=== PATIENT | female | born 1965 | race American Indian/Alaskan Native ===

== ENCOUNTER 2017-10-30 06:08 | Day surgery (SDC) | payer MEDICARE, OTHER ==
[2017-10-17 14:54] VITALS: BMI 44.9
[2017-10-30 07:16] VITALS: RESP 18
--- NOTE | 2017-10-30 07:24 | CP.SDSHP ---
Same Day Surgery H & P - History Proposed Procedure: Right knee arthroscopy, possible partial meniscectomy and microfracture Pre-Op Diagnosis: Right knee lateral meniscal tear, chondromalacia - Previous Medical/Surgical History Comments: ARETHA Previous Surgical History: left knee arthroscopy/ACL - Allergies Allergies: Allergies clopidogrel [From Plavix] Allergy (Verified 10/30/17 07:19) RASH - Current Medications Current Medications: patient on pain mgmt, last rx 10/28/17 for endocet #90, no additional narcotics rx provided - Physical Exam Vital Signs: Vital Signs 10/30/17 10/30/17 07:15 07:16 Temperature 98.1 F Pulse Rate 81 81 Respiratory 18 Rate Blood Pressure 100/60 Mental Status: Alert & Oriented x3 Heart: WNL Lungs: WNL GI: WNL - {Optional Preform as Required} Ortho: Other (+mcmurrays, +mild effusion, no erythema, calves soft NT neg homans +DP/PT pulses, +rom ankle/toes/knee) Other Pertinent Findings: medical clearance and imaging on chart, reviewed - Impression Impression: 52F with right knee meniscal tear for arthroscopy Pt. Evaluated Today:Candidate for Anesthesia & Procedure: Yes - Date & Time Date: 10/30/17 Time: 07:25 Short Stay Discharge - Short Stay Discharge Admitting Diagnosis/Reason for Visit: M25.461/ S83.511A/ M25.561 / M25.611 / Disposition: HOME/ ROUTINE Referrals: Mj Mendoza III, MD [Primary Care Provider] - Past Patient History - Past Medical History & Family History Past Medical History?: Yes - Past Social History Smoking Status: Former Smoker - CARDIAC Hx Cardiac Disorders: Yes Hx Hypertension: Yes Other/Comment: dvt--left leg/right lung - PULMONARY Hx Respiratory Disorders: No - NEUROLOGICAL Hx Neurological Disorder: No - HEENT Hx HEENT Problems: No - RENAL Hx Chronic Kidney Disease: No - ENDOCRINE/METABOLIC Hx Endocrine Disorders: Yes Hx Hypothyroidism: Yes - HEMATOLOGICAL/ONCOLOGICAL Hx Blood Disorders: No - INTEGUMENTARY Hx Dermatological Problems: No - MUSCULOSKELETAL/RHEUMATOLOGICAL Hx Musculoskeletal Disorders: Yes Hx Arthritis: Yes (knees,back,feet) - GASTROINTESTINAL Hx Gastrointestinal Disorders: Yes Hx Gastroesophageal Reflux: Yes - GENITOURINARY/GYNECOLOGICAL Hx Genitourinary Disorders: No - PSYCHIATRIC Hx Physical Abuse: No - SURGICAL HISTORY Hx Surgeries: Yes Hx Arthroscopy: Yes (left knee acl) Hx Breast Biopsy: Yes (breast rt nipple removed/numerous i/d) Hx Hysterectomy: Yes - ANESTHESIA Hx Anesthesia: Yes Hx Anesthesia Reactions: No Has any member of the family had a problem w/ anesthesia?: No
[2017-10-30] MEDS ORDERED: Lactated Ringer's 1,000 ML IV ONE ×2 (07:50→12:45)
[2017-10-30] MEDS ORDERED: EPINEPHrine 1 mg/ml (1:1000) Inj ONE ×3 (10:56→11:36)
[2017-10-30] MEDS ORDERED: ceFAZolin IV 1 gm in Dextrose 2 GM/100 ML BAG IVPB ONE (10:56)
[2017-10-30] MEDS ORDERED: methylPREDNISolone Depo 80 mg/ml Inj ONE (10:56)
[2017-10-30] MEDS ORDERED: Bupivacaine HCl 0.5% PF (30 ml) Inj ONE (10:56)
[2017-10-30] MEDS ORDERED: Bacitracin Ointment 30 GM TUBE ONE (10:57)
[2017-10-30] MEDS ORDERED: Propofol 10 mg/ml Inj (20 ML) ONE ×2 (11:02→11:44)
[2017-10-30] MEDS ORDERED: Succinylcholine 200 mg/10 ml Inj IV ONE (11:03)
[2017-10-30] MEDS ORDERED: Rocuronium 10 mg/ml (5 ml) ONE ×2 (11:03→12:55)
[2017-10-30] MEDS ORDERED: Lidocaine 4% (Laryng-O-Jet) Kit MM ONE (11:03)
[2017-10-30] MEDS ORDERED: Bupivacaine HCl 0.25% PF (30 ml) Inj ONE (11:35)
[2017-10-30] MEDS ORDERED: ePHEDrine 50 mg/ml Inj ONE (12:34)
[2017-10-30] MEDS ORDERED: EPINEPHrine 1 mg/ml (1:1000) Inj IV ONE (12:40)
[2017-10-30] MEDS ORDERED: Lidocaine 1% Inj (20ml) INFIL ONE (12:40)
[2017-10-30] MEDS ORDERED: methylPREDNISolone Depo 80 mg/ml Inj IM ONE ×2 (12:49→13:08)
[2017-10-30] MEDS ORDERED: Bupivacaine 0.5% Inj(30mL) IJ ONE ×2 (12:52→13:08)
[2017-10-30] MEDS ORDERED: Neostigmine 1:1000 (1 mg/ml) Inj ONE (13:01)
[2017-10-30] MEDS ORDERED: Bacitracin OINT 15GM TOP ONE (13:20)
[2017-10-30] MEDS ORDERED: Oxycodone/Acetaminophen 5/325 mg Tab PO PRN (13:31)
[2017-10-30] MEDS ORDERED: Lactated Ringer's 1,000 ML IV SCH ×2 (13:45)
--- NOTE | 2017-10-30 14:30 | PCM.ANESB3 ---
Femoral Nerve Block - Femoral Nerve Block Date of Procedure: 10/30/17 Anesthesiologist: Kandis Pre-Procedure Diagnosis: Internal derangement right knee Post-Procedure Diagnosis: Same Procedure Performed: Femoral Nerve Block Right - Procedure Femoral Nerve Block: The procedure was explained to the patient that it is for the post-operative pain management. Consent was obtained after a thorough discussion with the patient regarding the benefits and possible complications of local anesthetic block of the femoral nerve at the inguinal crease area. The patient was brought to the operating room and standard monitors were applied. Time-out was held with the circulating nurse to confirm the correct surgery and the appropriate block. Under general anesthesia, patient was placed in supine position with fully extended lower extremities and the ___right groin exposed. The femoral artery was then carefully palpated. The ultrasound transducer was then applied to this area in the transverse plane and the femoral nerve was visualized lateral to the femoral artery and underneath the fascia iliaca. After thorough identification, the inguinal crease area was prepped with Chloraprep. At this point, a #22 gauge Stimuplex 2-inch needle was inserted immediately lateral to the femoral artery pulse at the inguinal crease and advanced perpendicularly. The needle was inserted to the ultrasound transducer in-plane towards the femoral nerve in a [id number] direction. Needle advancement was performed carefully under direct ultrasound visualization. Nerve stimulator was used and twitch of the quadriceps muscle was obtained at current of ___0.4__ MA. After negative aspiration, _2____cc of _0.25____% ___bupivacaine with 1:200, 000 epinephrine was injected and this was followed with __38___ _ cc of ___0.25____ % ___bupivacaine with 1:200,000 epinephrine . Under ultrasound guidance the local anesthetics were observed spreading below fascia iliaca and around the femoral nerve. The needle was removed intact. The patient tolerated the femoral nerve block well with stable vital signs and was prepared for subsequent surgery.
[2017-10-30 17:13] VITALS: BP 112/67; PULSE 82; TEMP 97.6; O2SAT 96
--- NOTE | 2017-10-30 19:26 | PCM.SURG1 ---
Surgeon's Initial Post Op Note - Surgeon's Notes Surgeon: Kelly Certified Veterinary Technician: BOGDAN Gomez Type of Anesthesia: General Endo Anesthesia Administered By: Dr Badillo/Shaylee Pre-Operative Diagnosis: internal dernagement Right knee Operative Findings: as per post op dx Post-Operative Diagnosis: complex tear lateral meniscus/tear medial meniscus. tricompartmental synovitis. patellofemoral arthritis/chondral fx femoral trochlea. asymptomatic bipartite patella Operation Performed: arthroscopic partial tricompartmental synovectomy. arthroscopic p[artial medial/lateral meniscectomy. arthroscopic microfracture. intrarticular injection'. appl Genaro Huston dressing and knee immobilizer Specimen/Specimens Removed: cartilage/synovium/bone Estimated Blood Loss: EBL {In ML}: 10 Blood Products Given: N/A Drains Used: No Drains Post-Op Condition: Fair Date of Surgery/Procedure: 10/30/17 Time of Surgery/Procedure: 12:40 (time in room/anesthesia indcution time 11:45)
--- NOTE | 2017-10-31 12:15 | OP ---
Copied To: Mj Mendoza MD Attending MD: Mj Mendoza MD PROCEDURE DATE: 10/30/2017 PREOPERATIVE DIAGNOSIS: Internal derangement of the right knee. POSTOPERATIVE DIAGNOSES: 1. Complex tear of lateral meniscus. 2. Tear of medial meniscus. 3. Tricompartmental synovitis. 4. Patellofemoral arthritis, chondral fracture of the femoral trochlea. 5. Asymptomatic bipartite patella. OPERATIONS PERFORMED: 1. Arthroscopic partial tricompartmental synovectomy. 2. Arthroscopic partial, medial and lateral meniscectomy. 3. Arthroscopic microfracture. 4. Intra-articular injection. 5. Genaro Huston compression dressing and knee immobilizer. SURGEON: Mj Mendoza MD [employer] AND INSTALLER: Dora Dan, certified registered nursing registered medical assistant. ANESTHESIA: General endotracheal anesthesia. ANESTHESIA ADMINISTERED BY: Aurelio Badillo MD and Herman Marquis MD. SPECIMENS REMOVED: Cartilage, synovium and bone. BLOOD LOSS: 10 mL. BLOOD PRODUCTS: No blood products given. DRAINS: No drains. POSTOPERATIVE CONDITION: Stable. TIME OF SURGERY: 12:40. ANESTHESIA INDUCTION TIME: 11:45. OPERATIVE INDICATION: Love Hernandez is a 52-year-old morbidly obese female who presents with severe pain and deformity of the right knee, right lower extremity. Pros, cons, risks and benefits of surgical approach were discussed. The concept that this patient will require a total knee replacement arthroplasty in the future was discussed. The concept that the patient has a bipartite patella was discussed, in fact this was not a fracture. 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 Pros, cons, risks and benefits of surgical approach were discussed. The possibility of mechanical failure, infection, thromboembolic disease, secondary or tertiary surgery was discussed. OPERATIVE PROCEDURE: After having obtained informed consent in the above fashion, after having identified the side, site and procedure, a critical pause/time-out, after the satisfactory induction of the anesthetic, the patient identified as Love Hernandez, in the supine position with all bony prominences well padded. The right lower extremity was prepped, free draped in usual fashion for lower extremity surgery. The tourniquet had been applied, but was not yet inflated. After exsanguinating the limb using a 6-inch Esmarch bandage, the tourniquet which had been applied was inflated to 350 mmHg. After having sterilely prepped and draped with all bony prominences well padded, the right lower extremity was prepped and free draped in usual fashion for lower extremity surgery. The limb was exsanguinated using a 6-inch Esmarch bandage, the tourniquet which had been applied was inflated to 350 mmHg. The joint was insufflated with 10 mL of 1% lidocaine without epinephrine. Using #11 blade from an anterolateral portal, one thumbs breadth lateral to the inferior pole of the patella followed by spreading, followed by introduction of the blunt trocar, the arthroscope was introduced. There was found be a massive amount of synovitis. Again, there was found to be evidence of the valgus deformity. This will not be addressed at this point in time. This was purely an arthroscopic procedure. Triangulation was accomplished from an anteromedial portal using #18 gauge spinal needle, followed by #11 blade, followed by spreading, followed by introduction of the blunt trocar. With the arthroscope anterolaterally, a careful partial tricompartmental synovectomy was completed. Bleeding points were controlled with the arthroscopic wand. With the arthroscope anterolaterally, a careful partial tricompartmental synovectomy was completed. With the arthroscope anterolaterally and with the surgeon exerting a gentle varus stress, the medial compartment was exposed to advantage. The anterior cruciate ligament was found to be intact. There was found to be arthritis of the patellofemoral joint with a chondral fracture, which is traumatic of the femoral trochlea. With the arthroscope anterolaterally, with the surgeon exerting a general valgus stress to expose the medial compartment to advantage, a partial medial meniscectomy was accomplished using a combination of straight-biting basket forceps and the side-biting basket forceps using the arthroscopic shaver. The inner free edge was smoothed using the arthroscopic wand. Please refer to the video photographs. The anterior cruciate ligament was intact with the knee in [id number] position. There was found to be a large tear of the lateral meniscus. Using a combination of the arthroscopic shaver, with the arthroscope now transferred anteromedially using a combination of the straight-biting basket forceps and the side-biting basket forceps, a partial lateral meniscectomy was accomplished. The arthroscope was transferred back anterolaterally with the knee in [id number] position. The lateral compartment was exposed to advantage. Using a combination of straight-biting basket forceps and the side-biting basket forceps, a partial lateral meniscectomy was completed. The inner free edge was smoothed using the wand. At this point in time, the chondral divot and chondral fracture and the femoral trochlea was identified. This was carefully debrided using the arthroscopic shaver and a chondroplasty was accomplished. After this was accomplished down to the base of the subchondral bone plate with the arthroscope now anteromedially using a combination of the arthroscopic pick in a honeycomb-type fashion, a microfracture-type technique was accomplished. Loose bone was removed. The wound was thoroughly irrigated. Tricompartmental synovectomy was completed. Bleeding points were controlled with the arthroscopic wand. Portals were closed with interrupted Vicryl and nylon. Intra-articular injection was offered. Genaro Robel compression dressing and knee immobilizer was applied. Mj Mendoza MD
== END 2017-10-30 17:10 | disposition home or self-care (01) ==
LOC: H.OPSURG 06:08
PROVIDERS: ATTEND Orthopaedic Surgery
DX: S83.271A Complex tear of lateral meniscus, current injury, right knee, initial encounter (principal); S83.241A Other tear of medial meniscus, current injury, right knee, initial encounter; M65.861 Other synovitis and tenosynovitis, right lower leg; M13.861 Other specified arthritis, right knee; I10 Essential (primary) hypertension; E03.9 Hypothyroidism, unspecified; K21.9 Gastro-esophageal reflux disease without esophagitis; E66.01 Morbid (severe) obesity due to excess calories; Z68.42 Body mass index [BMI] 45.0-49.9, adult; Z87.891 Personal history of nicotine dependence; Q74.1 Congenital malformation of knee
CPT/HCPCS: 29876; 29879; 29880; 88305; 97116; 97161; G8978; G8979; G8980; J0131; J0171; J0330; J0690; J1040; J1885; J2001; J2405; J2704; J2710; J7030; J7120